=== PATIENT | male | born 1960 | race Caucasian/White ===

== ENCOUNTER 2017-08-22 13:18 | Emergency (ER) | payer OTHER ==
[~2017-08-22] VITALS: Ht 177.8 cm; Wt 98.1 kg
[~2017-08-22 13:18] MED LIST: NAPROSYN500 MG PO; PERCOCET 5/31 TABLET PO; VALIUM5 MG PO
[2017-08-22] MEDS ORDERED: VENTOLIN HFA18 GM IH (16:27)
[2017-08-22 17:39] VITALS: BP 121/79
== END 2017-08-22 17:40 | disposition home or self-care (01) ==
LOC: EME 13:18
DX: K40.90 Unilateral inguinal hernia, without obstruction or gangrene, not specified as recurrent (principal); J98.01 Acute bronchospasm; F17.200 Nicotine dependence, unspecified, uncomplicated
CPT/HCPCS: 94664; 99281; 99283

== ENCOUNTER 2017-09-06 05:36 | Day surgery (SDC) | payer OTHER ==
[~2017-09-06] VITALS: Ht 182.9 cm; Wt 90.7 kg
[~2017-09-06 05:36] MED LIST changes: +ASPIR-LOW81 MG PO; +VENTOLIN HFA18 GM IH
[2017-09-06 06:53] VITALS: BP 125/76
[2017-09-06] MEDS ORDERED: PERCOCET 5/31 TABLET PO (12:34)
[2017-09-06] MEDS ORDERED: COLACE100 MG PO (12:34)
[2017-09-06 14:07] VITALS: BP 136/77
[2017-09-06 15:07] VITALS: BP 124/67
== END 2017-09-06 15:28 | disposition home or self-care (01) ==
LOC: SDC
PROC: 0YUA4JZ Supplement Bilateral Inguinal Region with Synthetic Substitute, Percutaneous Endoscopic Approach (ICD-10-PCS; principal; 2017-09-06)
DX: K40.20 Bilateral inguinal hernia, without obstruction or gangrene, not specified as recurrent (principal); D17.6 Benign lipomatous neoplasm of spermatic cord; E78.00 Pure hypercholesterolemia, unspecified; G47.30 Sleep apnea, unspecified; F17.210 Nicotine dependence, cigarettes, uncomplicated; E66.09 Other obesity due to excess calories; Z68.27 Body mass index [BMI] 27.0-27.9, adult; Z79.82 Long term (current) use of aspirin
CPT/HCPCS: C1727; C1781; J0330; J0461; J0690; J1100; J1170; J2001; J2405; J2795; J3010; J3475